=== PATIENT | male | born 1980 | race African-American/Black ===

== ENCOUNTER 2017-03-08 21:15 | Emergency (ER) | payer MEDICARE, OTHER ==
[~2017-03-08] VITALS: Ht 177.8 cm; Wt 78.0 kg
[~2017-03-08 21:15] MED LIST: ABIL5TAB6 PO; DEPA500T3 PO
--- NOTE | 2017-03-08 21:49 | PD ---
HPI Chief Complaint: Psychiatric Symptoms Time Seen by Provider: 21:34 Travel History International Travel<30 days: No Contact w/Intl Traveler<30days: No History of Present Illness HPI 36-year-old male presents to the emergency Department under [place] act by local police. The patient states he was angry because he does not have a job and felt overwhelmed. He went to [employer] and started screaming of the customers. When asked what he said, he states "I didn't say anything too bad". Patient denies any suicidal or homicidal ideation. Patient is cooperative. 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 He does state he had a cup of [place] today. Patient smokes marijuana. He denies any medical complaints at this time. PFS Past Medical History Hx Anticoagulant Therapy: No Bipolar Disorder: Yes Anxiety: No Depression: Yes Cardiovascular Problems: No Chemotherapy: No Cerebrovascular Accident: No Diabetes: No Diminished Hearing: No Psychiatric: Yes Respiratory: No Immunizations Current: No Seizures: Yes Sickle Cell Disease: No (REFUSES TO ANSWER) Social History Alcohol Use: Yes (occ) Tobacco Use: Yes (1ppd) Substance Use: Yes (marijuana) Allergies-Medications (Allergen,Severity, Reaction): Coded Allergies: haloperidol (Unverified Allergy, Unknown, Rash, 03/08/17) Per pt - states that he "breaks out". Reported Meds & Prescriptions Reported Meds & Active Scripts Active No Active Prescriptions or Reported Medications Review of Systems Except as stated in HPI: all other systems reviewed are Neg Physical Exam Narrative GENERAL: Well-nourished, well-developed male patient, ambulatory. Afebrile. SKIN: Focused skin assessment warm/dry. HEAD: Normocephalic. Atraumatic. EYES: No scleral icterus. No injection or drainage. NECK: Supple, trachea midline. No JVD or lymphadenopathy. CARDIOVASCULAR: Regular rate and rhythm without murmurs, gallops, or rubs. RESPIRATORY: Breath sounds equal bilaterally. No accessory muscle use. Lungs sounds are clear to auscultation. GASTROINTESTINAL: Abdomen soft, non-tender, nondistended. MUSCULOSKELETAL: No cyanosis, or edema. PSYCHIATRIC: No delusional thought processes. No hallucinations. Data Data Last Documented VS Vital Signs Date Time Temp Pulse Resp B/P (MAP) Pulse Ox O2 Delivery O2 Flow Rate FiO2 03/08/17 21:50 80 16 Orders Orders Complete Blood Count With Diff (03/08/17 21:35) Comprehensive Metabolic Panel (03/08/17 21:35) Psych Screen (03/08/17 21:35) Drug Screen, Random Urine (03/08/17 21:35) Alcohol (Ethanol) (03/08/17 21:35) Labs Laboratory Tests Test 03/08/17 21:55 White Blood Count 8.3 TH/MM3 Red Blood Count 4.53 MIL/MM3 Hemoglobin 13.2 GM/DL Hematocrit 40.2 % Mean Corpuscular Volume 88.7 FL Mean Corpuscular Hemoglobin 29.0 PG Mean Corpuscular Hemoglobin Concent 32.7 % Red Cell Distribution Width 14.0 % Platelet Count 249 TH/MM3 Mean Platelet Volume 7.8 FL Neutrophils (%) (Auto) 58.5 % Lymphocytes (%) (Auto) 32.6 % Monocytes (%) (Auto) 7.4 % Eosinophils (%) (Auto) 1.0 % Basophils (%) (Auto) 0.5 % Neutrophils # (Auto) 4.9 TH/MM3 Lymphocytes # (Auto) 2.7 TH/MM3 Monocytes # (Auto) 0.6 TH/MM3 Eosinophils # (Auto) 0.1 TH/MM3 Basophils # (Auto) 0.0 TH/MM3 CBC Comment DIFF FINAL Differential Comment Blood Urea Nitrogen 13 MG/DL Creatinine 1.45 MG/DL Random Glucose 76 MG/DL Total Protein 7.1 GM/DL Albumin 3.7 GM/DL Calcium Level 8.5 MG/DL Alkaline Phosphatase 41 U/L Aspartate Amino Transf (AST/SGOT) 12 U/L Alanine Aminotransferase (ALT/SGPT) 15 U/L Total Bilirubin 0.7 MG/DL Sodium Level 137 MEQ/L Potassium Level 3.9 MEQ/L Chloride Level 105 MEQ/L Carbon Dioxide Level 26.4 MEQ/L Anion Gap 6 MEQ/L Estimat Glomerular Filtration Rate 67 ML/MIN Ethyl Alcohol Level LESS THAN 3 MG/DL MDM Medical Decision Making Medical Screen Exam Complete: Yes Emergency Medical Condition: Yes Medical Record Reviewed: Yes Differential Diagnosis Anger versus anxiety versus depression versus substance abuse versus bipolar disorder Narrative Course 36-year-old male presents to the emergency department under Santos act for psychiatric evaluation. CBC is unremarkable. CMP shows creatinine 1.45, no acute abnormality. Urine drug screen is pending. Alcohol level is less than 3. Patient is medically cleared for psychiatric screening and disposition. Mental health screening discussed with the patient. Psychiatric screen ordered. Diagnosis Primary Impression: Medical clearance for psychiatric admission Additional Instructions: Patient is medically cleared for psychiatric screening and disposition. Scripts No Active Prescriptions or Reported Meds Disposition: 01 DISCHARGE HOME Condition: Stable Bouchra Hollins MANNY Mar 08, 2017 21:49
[2017-03-08 22:44] LABS: AUTOMATED NEUTROPHIL # 4.9 TH/MM3 (1.8-7.7); BASOPHIL % 0.5 % (0.0-2.0); EOSINOPHIL # 0.1 TH/MM3 (0-0.4); HEMATOCRIT 40.2 % (39.0-51.0); HEMO FLAGS DIFF FINAL; LYMPH % 32.6 % (9.0-44.0); LYMPHOCYTE # 2.7 TH/MM3 (1.0-4.8); MEAN CELL VOLUME 88.7 FL (80.0-100.0); MEAN CORPUSCULAR HGB CONC 32.7 % (32.0-36.0); MONO % 7.4 % (0.0-8.0); NEUT % 58.5 % (16.0-70.0); PLATELET COUNT 249 TH/MM3 (150-450); RED BLOOD COUNT 4.53 MIL/MM3 (4.50-5.90); WHITE BLOOD COUNT 8.3 TH/MM3 (4.0-11.0)
[2017-03-08 22:57] LABS: ANION GAP 6 MEQ/L (5-15); AST (GOT) 12 U/L (15-37); BICARBONATE 26.4 MEQ/L (21.0-32.0); BLOOD UREA NITROGEN 13 MG/DL (7-18); CHLORIDE 105 MEQ/L (98-107); GLOMERULAR FILTRATION RATE 67 ML/MIN (>89); POTASSIUM 3.9 MEQ/L (3.5-5.1); SODIUM (NA) 137 MEQ/L (136-145)
[2017-03-08 22:58] LABS: ALCOHOL LESS THAN 3 MG/DL (0-5)
[2017-03-08 22:59] LABS: ALT (GPT) 15 U/L (12-78)
[2017-03-08 23:00] LABS: ALKALINE PHOSPHATASE 41 U/L (45-117); TOTAL BILIRUBIN ADULT 0.7 MG/DL (0.2-1.0)
[2017-03-08 23:26] VITALS: BP 121/78; PULSE 50; RESP 16; TEMP 98.5; O2SAT 100
[2017-03-09 08:35] VITALS: BP 132/75; PULSE 77; RESP 16; O2SAT 98
[2017-03-09 14:12] VITALS: BP 141/75
--- NOTE | 2017-03-09 14:20 | PD ---
History of Present Illness Chief Complaint: Psychiatric Symptoms Time Seen by Provider: 11:30 Travel History International Travel<30 Days: No Contact w/Intl Traveler<30days: No Known affected area: No Legal Status Legal Status: Danielle Eller History of Present Illness: 36-year-old male Danielle acted for inappropriate behavior at local [employer]. At the time he was seen by this physician, he was calm, pleasant and cooperative. He admits to feeling overwhelmed and losing his cool at [employer]. However, he currently denies any suicidal, homicidal ideation, plan or intent. He demonstrates no significant evidence of psychotic thinking and his cognition is intact. He is wanting to go home and he is verbally rakesh for safety. When this physician offered to lift his Danielle act, the patient was obviously pleased and smiling and thankful. He feels he said the wrong thing and behaved inappropriately at [employer] but he is not a danger to himself or others. PFSH Past Medical History Hx Anticoagulant Therapy: No Bipolar Disorder: Yes Anxiety: No Depression: Yes Cardiovascular Problems: No Chemotherapy: No Cerebrovascular Accident: No Diabetes: No Diminished Hearing: No Psychiatric: Yes Respiratory: No Immunizations Current: No Seizures: Yes Sickle Cell Disease: No (REFUSES TO ANSWER) Past Surgical History Surgical History: No Previous Surgery Psychiatric History Psychiatric History Hx Psychiatric Treatment: UNKNOWN. Denied History of Inpatient Treatment: No Guns or firearms in home: No Social History Hx Alcohol Use: Yes (occ) Hx Tobacco Use: Yes (1ppd) Hx Substance Use: Yes (marijuana) Hx of Substance Use Treatment: No Allergies-Medications (Allergen,Severity, Reaction): Coded Allergies: haloperidol (Unverified Allergy, Unknown, Rash, 03/08/17) Per pt - states that he "breaks out". Reported Meds & Prescriptions Reported Meds & Active Scripts Active No Active Prescriptions or Reported Medications Review of Systems Except as stated in HPI: all other systems reviewed are Neg Exam Alert: Yes [place]: Person, Place, Date, Situation Mood: Calm Affect: Appropriate, Euthymic Speech: Clear Eye Contact: Normal Memory Intact: Immediate, Recent, Remote Insight/Judgement adequate MDM Medical Decision Making Medical Record Reviewed: Yes Assessment/Plan 36-year-old male who was Santos acted for inappropriate behavior. At this time, the patient is calm, pleasant and cooperative. He does not meet criteria for Santos act and he does not meet criteria for involuntary psychiatric hospitalization. He has no suicidal or homicidal ideation, plan or intent. No evidence of psychosis and cognition intact. Patient is verbally rakesh for safety. Orders Orders Complete Blood Count With Diff (03/08/17 21:35) Comprehensive Metabolic Panel (03/08/17 21:35) Psych Screen (03/08/17 21:35) Drug Screen, Random Urine (03/08/17 21:35) Alcohol (Ethanol) (03/08/17 21:35) Diet Regular Basic (03/09/17 Breakfast) Results Vital Signs Date Time Temp Pulse Resp B/P (MAP) Pulse Ox O2 Delivery O2 Flow Rate FiO2 03/09/17 14:12 76 16 141/75 (97) 100 03/09/17 08:35 77 16 132/75 (94) 98 Room Air 03/08/17 23:26 98.5 50 16 121/78 (92) 100 03/08/17 21:50 80 16 Laboratory Tests Test 03/08/17 21:55 White Blood Count 8.3 Red Blood Count 4.53 Hemoglobin 13.2 Hematocrit 40.2 Mean Corpuscular Volume 88.7 Mean Corpuscular Hemoglobin 29.0 Mean Corpuscular Hemoglobin Concent 32.7 Red Cell Distribution Width 14.0 Platelet Count 249 Mean Platelet Volume 7.8 Neutrophils (%) (Auto) 58.5 Lymphocytes (%) (Auto) 32.6 Monocytes (%) (Auto) 7.4 Eosinophils (%) (Auto) 1.0 Basophils (%) (Auto) 0.5 Neutrophils # (Auto) 4.9 Lymphocytes # (Auto) 2.7 Monocytes # (Auto) 0.6 Eosinophils # (Auto) 0.1 Basophils # (Auto) 0.0 CBC Comment DIFF FINAL Differential Comment Blood Urea Nitrogen 13 Creatinine 1.45 Random Glucose 76 Total Protein 7.1 Albumin 3.7 Calcium Level 8.5 Alkaline Phosphatase 41 Aspartate Amino Transf (AST/SGOT) 12 Alanine Aminotransferase (ALT/SGPT) 15 Total Bilirubin 0.7 Sodium Level 137 Potassium Level 3.9 Chloride Level 105 Carbon Dioxide Level 26.4 Anion Gap 6 Estimat Glomerular Filtration Rate 67 Ethyl Alcohol Level LESS THAN 3 Diagnosis Primary Impression: Adjustment disorder with mixed disturbance of emotions and conduct Departure Forms: Tests/Procedures Patient Instructions: General Instructions Additional Instructions: Patient is medically cleared for psychiatric screening and disposition. Prescriptions No Active Prescriptions or Reported Meds Disposition: 01 DISCHARGE HOME Condition: Stable Roger Hope MD Mar 09, 2017 14:20
== END 2017-03-09 15:16 | disposition home or self-care (01) ==
LOC: NEPD 21:15
DX: F43.25 Adjustment disorder with mixed disturbance of emotions and conduct (principal); F12.90 Cannabis use, unspecified, uncomplicated; F17.210 Nicotine dependence, cigarettes, uncomplicated
CPT/HCPCS: 80053; 80307; 85025; 99284